=== PATIENT | female | born 1950 | race Caucasian/White ===

== ENCOUNTER → 2016-09-24 | Outpatient (CLI) | payer MEDICARE ==
[~2016-09-24] MED LIST: ATIVAN1 MG PO; BLOOD PRESSURE MED; DESYREL 50MG50 MG PO; ESTRACE 1MG1 MG/TAB PO; NORVASC5 MG PO; PROTONIX 40MG T40 MG PO; PROTONIX40 MG PO; TOPROL XL 50MG50 MG PO; TRETIN X TP; ZESTRIL 10MG10 MG PO; ZOLOFT 100MG100 MG PO; ZOLOFT100 MG PO
== END ==
LOC: BHSO 15:52
DX: F33.1 Major depressive disorder, recurrent, moderate (principal)

== ENCOUNTER → 2016-12-17 | Outpatient (CLI) | payer MEDICARE | LOC: BHSO 15:44 | DX: F33.1 Major depressive disorder, recurrent, moderate (principal) ==

== ENCOUNTER → 2017-01-01 | Outpatient (CLI) | payer MEDICARE | LOC: BHSO 09:17 | DX: F33.1 Major depressive disorder, recurrent, moderate (principal) ==